=== PATIENT | male | born 1985 | race Hispanic/Latino ===

== ENCOUNTER 2020-04-10 19:59 | Inpatient (IN) | payer SELFPAY ==
[~2020-04-10 19:59] MED LIST: Iopamidol-370 76% 500 ML 1 ML ONE
[2020-04-10] MEDS ORDERED: Fentanyl 100 MCG/2 ML VIAL ONE (20:07)
[2020-04-10 20:21] LABS: #Eosinphils 0.1 thou/uL (0.0-0.7); #Lymphocytes 1.9 thou/uL (1.20-3.40); #Monocytes 0.9 thou/uL (0.11-0.59); #Neutrophils 10.9 thou/uL (1.40-6.50); %Basophils 0.3 % (0.0-1.0); %Eosinophils 0.5 % (0.0-10.0); %Lymphocytes 13.4 % (21.0-51.0); %Monocytes 6.5 % (0.0-10.0); %Neutrophils 79.2 % (42.0-75.0); Hemoglobin 15.7 g/dL (14.0-18.0); Mean Corpuscular HGB CONC 33.9 g/dL (32.0-36.0); Mean Corpuscular Hemoglobin 31.1 pg (27.0-31.0); Mean Corpuscular Volume 91.8 fL (78.0-98.0); Mean Platelet Volume 9.3 fL (7.4-10.4); Platelet Count 140 thou/uL (130-400); RBC Distribution Width 11.8 % (11.5-14.5); Red Blood Cell (RBC) Count 5.04 mill/uL (4.70-6.10); White Blood Cell (WBC) Count 13.8 thou/uL (4.8-10.8)
[2020-04-10 20:29] LABS: PTT 28.8 sec (22.9-36.1); Prothrombin Time 13.6 sec (12.0-14.7)
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
[2020-04-10 20:40] LABS: ALT (SGPT) 49 U/L (8-55); AST (SGOT) 55 U/L (5-34); Albumin 4.4 g/dL (3.5-5.0); Alcohol Less than 10 mg/dL (Less than 10); Alkaline Phosphatase 91 U/L (40-110); Anion Gap 15 mmol/L (10-20); BUN (Urea Nitrogen) 15 mg/dL (8.9-20.6); Bilirubin, Total 0.6 mg/dL (0.2-1.2); Calc. Creatinine Clearance 0 mL/min (70-130); Calcium 8.9 mg/dL (7.8-10.44); Carbon Dioxide 25 mmol/L (22-29); Chloride 105 mmol/L (98-107); Estimated GFR-MDRD Greater than 90; Globulin 3.6 g/dL (2.4-3.5); Glucose 108 mg/dL (70-105); Sodium 141 mmol/L (136-145)
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
--- NOTE | 2020-04-10 20:57 | CT ---
CT of the right ankle: 04/10/2020 HISTORY: Evaluate talus fracture noted on recent radiograph TECHNIQUE: Axial CT imaging at 2.5 mm intervals through the right ankle with coronal and sagittal ref ormatted imaging FINDINGS: Imaged portions of the tibia and fibula demonstrate no definite fracture. There is no evide nce for fracture of the calcaneus, the cuboid, the navicular bone, or the cuneiforms. There is a comminuted complex fracture of the talus with prominent comminution along the inferior medial aspect with multifocal extension into the subtalar joint, especially in the region of the middle and posterior articular facets. The fracture appears to involve the anterior aspect of the superior artic ular surface/talar dome. There is associated soft tissue swelling, especially laterally. IMPRESSION: Complex multifocal comminuted fracture of the talus extending into the subtalar joint. Or thopedic consultation advised.
[2020-04-10 21:02] LABS: Bacteria/HPF None Seen HPF (None Seen); Bilirubin Negative (Negative); Blood, Urine 1+ (Negative); Clarity Clear (Clear); Glucose, Urine (Dipstick) Normal (Negative); Ketone, Urine Negative (Negative); Leukocyte Negative Leu/uL (Negative); Nitrite Negative (Negative); Protein, Urine (Dipstick) Negative (Neg-Trace); RBC/HPF 21-50 HPF (0-3); Specific Gravity, Urine 1.031 (1.002-1.036); Squamous Epithelial None Seen HPF (0-3); Urobilinogen Normal mg/dL (Less than 2); WBC/HPF 0-3 HPF (0-3); pH, Urine 6.5 (5.0-9.0)
[2020-04-10] MEDS ORDERED: Cyclobenzaprine 10 MG TAB PO PRN (22:57)
[2020-04-10] MEDS ORDERED: Ondansetron ODT 4 MG TAB PO PRN (22:57)
[2020-04-10] MEDS ORDERED: Dextrose 50% Abboject 50 ML SYRINGE SLOW IVP PRN (22:57)
[2020-04-10] MEDS ORDERED: traMADol HCl 50 MG TAB PO PRN ×2 (22:57)
[2020-04-10] MEDS ORDERED: Ondansetron PF 4 MG/2 ML Vial IVP PRN (22:57)
[2020-04-10] MEDS ORDERED: Dextrose 5% in Water 1,000 ML IV PRN (22:57)
[2020-04-10] MEDS ORDERED: Morphine 2 MG/ML VIAL SLOW IVP PRN (22:57)
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
[2020-04-10] MEDS: Sodium Chloride 0.9% 1,000 ML IV SCH (23:30)
[2020-04-10] MEDS: Acetaminophen 325 MG TAB PO SCH (23:30)
[2020-04-11] MEDS: Acetaminophen 325 MG TAB PO SCH ×3 (05:39→17:25)
[2020-04-11] MEDS: Ibuprofen 600 MG TAB PO SCH ×3 (05:39→19:47)
[2020-04-11 06:08] LABS: Anion Gap 12 mmol/L (10-20); BUN (Urea Nitrogen) 11 mg/dL (8.9-20.6); Calc. Creatinine Clearance 0 mL/min (70-130); Calcium 7.9 mg/dL (7.8-10.44); Carbon Dioxide 23 mmol/L (22-29); Chloride 107 mmol/L (98-107); Estimated GFR-MDRD Greater than 90; Glucose 94 mg/dL (70-105); Potassium 3.9 mmol/L (3.5-5.1); Sodium 138 mmol/L (136-145)
[2020-04-11 06:27] LABS: #Lymphocytes 1.4 thou/uL (1.20-3.40); #Monocytes 0.8 thou/uL (0.11-0.59); #Neutrophils 3.9 thou/uL (1.40-6.50); %Basophils 0.2 % (0.0-1.0); %Eosinophils 0.1 % (0.0-10.0); %Lymphocytes 22.4 % (21.0-51.0); %Monocytes 13.6 % (0.0-10.0); %Neutrophils 63.7 % (42.0-75.0); Hemoglobin 13.4 g/dL (14.0-18.0); Mean Corpuscular HGB CONC 33.8 g/dL (32.0-36.0); Mean Corpuscular Hemoglobin 31.3 pg (27.0-31.0); Mean Corpuscular Volume 92.5 fL (78.0-98.0); Platelet Count 119 thou/uL (130-400); Platelet Morphology Comment Appears Decreased; RBC Distribution Width 11.7 % (11.5-14.5); RBC Morphology Normal; Red Blood Cell (RBC) Count 4.29 mill/uL (4.70-6.10); White Blood Cell (WBC) Count 6.1 thou/uL (4.8-10.8)
[2020-04-11 08:22] LABS: SARS-CoV-2 MS2 Positive; SARS-CoV-2 N Gene Negative; SARS-CoV-2 S Gene Negative; SARS-CoV-2 by NAA Not Detected (NotDetected); SARS-CoV-2 orf1ab Negative
[2020-04-11 08:25] VITALS: BMI 24.9
--- NOTE | 2020-04-11 08:25 | RAD ---
SINGLE VIEW OF THE CHEST: COMPARISON: 04/10/2020. Also CT chest 04/10/2020. HISTORY: Pulmonary contusion. FINDINGS: A single view of the chest shows a normal-size cardiomediastinal silhouette. There is no evidence of consolidation, mass, or pleural effusion. The right heart border is still crisp without obvious vis ualization of the contusion seen on CT in this location. No pneumothorax is seen. The bones are unr emarkable. IMPRESSION: No evidence of acute cardiopulmonary disease. POS: KIMA
[2020-04-11] MEDS: Sodium Chloride 0.9% 1,000 ML IV SCH (08:36)
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
[2020-04-11] MEDS ORDERED: Lidocaine 1% PF 5 ML VIAL ONE (10:13)
[2020-04-11] MEDS ORDERED: Ropivacaine 0.5% HCl/PF (150 MG/30 ML VIAL) ONE (10:13)
[2020-04-11] MEDS ORDERED: Ketorolac Tromethamine 30 MG/ML VIAL ONE (10:13)
[2020-04-11] MEDS ORDERED: PROPOFOL 200 MG/20 ML VIAL ONE (10:13)
[2020-04-11] MEDS ORDERED: Ondansetron HCl/PF 4 MG/2 ML Vial IVP PRN (10:51)
[2020-04-11] MEDS ORDERED: Promethazine HCl 25 MG/ML VIAL IM PRN ×2 (10:51→11:45)
[2020-04-11] MEDS ORDERED: Promethazine HCl 25 MG/ML VIAL SLOW IVP PRN (10:51)
[2020-04-11] MEDS ORDERED: Fentanyl 100 MCG/2 ML VIAL ONE ×2 (11:00→15:15)
[2020-04-11] MEDS ORDERED: CEFAZOLIN 2 GM in Premix Bag 1 BAG IVPB SCH ×2 (11:00→16:00)
[2020-04-11] MEDS ORDERED: Midazolam HCl 2 mg/2 ml Vial ONE (11:00)
[2020-04-11] MEDS ORDERED: Fentanyl 100 MCG/2 ML VIAL IV PRN (11:38)
[2020-04-11] MEDS ORDERED: Ropivacaine 0.2% 550 ML 550 ML NERVE BLCK SCH (11:45)
[2020-04-11] MEDS ORDERED: traMADol HCl 50 MG TAB PO PRN ×2 (11:45)
[2020-04-11] MEDS ORDERED: Zolpidem Tartrate 5 MG TAB PO PRN (11:45)
[2020-04-11] MEDS ORDERED: Ondansetron PF 4 MG/2 ML Vial IVP PRN (11:45)
[2020-04-11] MEDS ORDERED: HYDROcodone/Acetaminophen 10/325 mg Tablet PO PRN ×2 (11:45)
[2020-04-11] MEDS: Famotidine 20 MG TAB PO SCH ×2 (13:13→19:47)
[2020-04-11] MEDS: Ketorolac Tromethamine 30 MG/ML VIAL IVP SCH ×2 (13:14→17:25)
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
--- NOTE | 2020-04-11 16:59 | RAD ---
RIGHT ANKLE 2 VIEWS: Date: 04/11/2020 PROVIDED CLINICAL HISTORY: Open reduction and internal fixation. FINDINGS: Comparison with 04/10/2020. Spot fluoroscopic frontal and lateral views demonstrate interval internal fixation of previously desc ribed talar fracture by two screws. IMPRESSION: As above. POS: CHACHO
[2020-04-11 17:10] VITALS: TEMP 98.2
[2020-04-11 20:01] VITALS: BP 114/71
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
== END 2020-04-11 20:15 | disposition home or self-care (01) | DRG 501 ==
LOC: ERS 19:59 → SJJU 21:14
PROVIDERS: ADMIT Specialist; ATTEND Specialist
PROC: 0QSL04Z Reposition Right Tarsal with Internal Fixation Device, Open Approach (ICD-10-PCS; principal; 2020-04-11)
PROC: 0LQS0ZZ Repair Right Ankle Tendon, Open Approach (ICD-10-PCS; 2020-04-11)
DX: S92.121A Displaced fracture of body of right talus, initial encounter for closed fracture (principal); S86.321A Laceration of muscle(s) and tendon(s) of peroneal muscle group at lower leg level, right leg, initial encounter; S27.321A Contusion of lung, unilateral, initial encounter; Z20.828 Contact with and (suspected) exposure to other viral communicable diseases; S30.811A Abrasion of abdominal wall, initial encounter; S92.111A Displaced fracture of neck of right talus, initial encounter for closed fracture; V49.9XXA Car occupant (driver) (passenger) injured in unspecified traffic accident, initial encounter; Y92.410 Unspecified street and highway as the place of occurrence of the external cause
CPT/HCPCS: 29515; 36415; 70450; 71045; 71260; 72125; 72170; 74177; 76000; 80048; 80053; 80307; 81003; 81015; 85025; 85610; 85730; 87635; 94640; 96374; A4306; C1713; G0390; J0690; J1885; J2250; J2270; J2795; J3010; J7620; U0003